=== PATIENT | female | born 2000 | race African-American/Black ===

== ENCOUNTER 2019-06-05 18:00 | Inpatient (IN) ==
[2019-06-05] MEDS ORDERED: CITRIC ACID/SODIUM CITRATE 15 ML UDC PO SCH (19:00)
[2019-06-05] MEDS ORDERED: MoRPHine SULFATE PF 1 MG/ML 10 ML AMP/VIAL ONE (19:02)
[2019-06-05] MEDS ORDERED: OXYTOCIN 10 UNITS/ML VIAL ONE (19:02)
[2019-06-05] MEDS ORDERED: PHENYLEPHRINE 100MCG/ML 5ML SYR ONE (19:02)
[2019-06-05] MEDS ORDERED: ONDANSETRON INJ 2 MG/ML 2 ML VIAL ONE (19:02)
[2019-06-05] MEDS ORDERED: fentaNYL citrate 100 MCG/2 ML VIAL ONE (19:02)
--- NOTE | 2019-06-05 19:02 | Anesthesiology Consultation ---
Date of Service June 05, 2019 Assessment & Plan (1) Encounter for pre-operative examination: Chart Review Chart Review: Acceptable Risk for Surgery and Patient NOT seen in Pre Admission Testing Spoke to patient at length via medical interpretation service. She denied any past medical history, particularly no heart disease, lung disease, diabetes or kidney disease. Consults Requested none History Surgery repeat c section Height/Weight Height: 4 ft 11 in Weight: 71.214 kg Allergies Allergy/AdvReac Type Severity Reaction Status Date / Time No Known Allergies Allergy Unverified 06/05/19 19:00 Medications Home Medications Medication Instructions Recorded Confirmed Last Taken vit-iron fum-folic ac 1 tab PO DAILY 06/05/19 06/05/19 Unknown [ Vitamin] Past Medical History Medical History No known health problems Exercise / Class Metabolic Activity II 4-5 Yardwork/Stairs/Walk up hill Past Surgical History Surgical History Previous section Past Anesthesia History No Hx of Anesthesia Complications and No Family Hx of Anesthesia Complications History of PONV No Hx of PONV and No Hx of Motion Sickness Social History Smoking Status: Former smoker Hx Alcohol Use: No Hx Substance Use: No substance use type: does not use Physical Exam Vital Signs Last Vital Signs Temp 37 C 06/05/19 18:21 Pulse 88 06/05/19 18:21 Resp 16 06/05/19 18:21 BP 158/95 H 06/05/19 18:21
[2019-06-05] MEDS ORDERED: LACTATED RINGER'S 1,000 ML IV SCH ×3 (19:15→21:30)
[2019-06-05] MEDS ORDERED: cefOXitin 2,000 MG in DEXTROSE 5% 50 ML IV ONE (19:15)
[2019-06-05 19:30] LABS: Basophils # (auto) 0.03 K/uL (0-0.2); Basophils % (auto) 0.3 %; Eosinophils # (auto) 0.04 K/uL (0-0.5); Eosinophils % (auto) 0.4 %; Hemoglobin 8.1 g/dL (12.0-16.0); Immature Granulocytes # (auto) 0.06 K/uL (0.00-0.02); Immature Granulocytes % (auto) 0.6 %; Lymphocytes # (auto) 1.98 K/uL (1.2-3.4); Lymphocytes % (auto) 19.6 %; Mean Corpuscular Hemoglobin 19.8 pg (25-34); Mean Corpuscular Volume 65.9 fL (80-100); Monocytes # (auto) 0.74 K/uL (0.11-0.59); Monocytes % (auto) 7.3 %; Neutrophils # (auto) 7.27 K/uL (1.4-6.5); Neutrophils % (auto) 71.8 %; Nucleated RBC # (auto) 0.08 K/uL (0-0); Nucleated RBC % (auto) 0.8 %; Platelet Count 205 K/uL (130-400); RDW Coefficient of Variation 20.4 % (11.5-14.5); White Blood Count 10.12 K/uL (4.8-10.8)
[2019-06-05 19:54] LABS: Anisocytosis Present; Microcytosis Present
[2019-06-05] MEDS ORDERED: ONDANSETRON INJ 2 MG/ML 2 ML VIAL IV PRN (20:18)
[2019-06-05] MEDS ORDERED: MoRPHine SULFATE PF 1 MG/ML 10 ML AMP/VIAL INT SPINAL ONE (20:18)
[2019-06-05] MEDS ORDERED: MoRPHine SULFATE 2 MG/ML CARP IV PRN (20:18)
[2019-06-05] MEDS ORDERED: NALBUPHINE HCL INJ 10 MG/ML AMP IV PRN (20:18)
[2019-06-05] MEDS ORDERED: NALOXONE HCL 0.08 MG in SYRINGE 1.8 ML IV PRN (20:18)
[2019-06-05] MEDS ORDERED: ePHEDrine sulfate 50 MG/ML AMP IV PRN (20:18)
[2019-06-05] MEDS ORDERED: NALOXONE HCL 0.4 MG/1 ML VIAL/CARP IV PRN (20:18)
[2019-06-05] MEDS ORDERED: LACTATED RINGER'S 500 ML IV PRN (20:18)
[2019-06-05] MEDS ORDERED: NALOXONE HCL 1 MG in SODIUM CHLORIDE 0.9% 1000ML 1,000 ML IV PRN (20:18)
[2019-06-05] MEDS ORDERED: DiphenhydrAMINE HCL 50 MG/ML VIAL IV PRN (20:18)
[2019-06-05] MEDS ORDERED: DC INTRASPINAL MORPHINE SCH (20:30)
[2019-06-05] MEDS ORDERED: SODIUM CHLORIDE 0.9% 1000ML 1,000 ML IV SCH (20:30)
[2019-06-05] MEDS ORDERED: NO NARCOTICS OR SEDATIVES SCH (20:30)
[2019-06-05] MEDS ORDERED: MAGNESIUM HYDROXIDE SUSP 30 ML UDC PO PRN (21:16)
[2019-06-05] MEDS ORDERED: HYDROCORTISONE ACETATE 25 MG SUPP PR PRN (21:16)
[2019-06-05] MEDS ORDERED: SENNA 8.6 MG TAB PO PRN (21:16)
[2019-06-05] MEDS ORDERED: SUPERCREAM 0.870% 15 GM JAR EXT PRN (21:16)
[2019-06-05] MEDS ORDERED: DIPHTHERIA/TETANUS/PERTUSSIS 0.5 ML SYR/VIAL IM ONE (21:16)
[2019-06-05] MEDS ORDERED: BENZOCAINE 20% AER SPR 82.5 GM CAN EXT PRN (21:16)
--- NOTE | 2019-06-05 21:24 | Post Operative Brief Note ---
Immediate Post Op Note v1 Date of Surgery June 05, 2019 Pre & Post Diagnosis Operation Date: 06/05/19 19:00 Pre-Op Diagnosis: Repeat elevated blood pressure proteinuria Post-Op Diagnosis: Same Procedure Operation Date: 06/05/19 19:00 Actual Procedures p Section in LD(Bilateral) - Benigno Watson MD Surgeon Benigno Watson MD Doctor Naturopathic jomar Estimated Blood Loss 350 Findings Consistent with Post-Op Diagnosis Fluids 1200 ml Specimens placenta Drains Case Catheter (catheter placed in OR, draining clear yellow urine to be monitored throughtout procedure by Anesthesia ) Anesthesia Type Spinal Complications none Disposition Accompanied Patient To Recovery: No Disposition: Recovery Room
--- NOTE | 2019-06-05 21:30 | Anesthesiology Progress Note ---
Date of Service June 05, 2019 Anesthesia Post Procedure Vital Signs Vital Signs: Temp Pulse Resp BP Pulse Ox 06/05/19 21:25 100 H 164/91 H 75 L 06/05/19 19:06 37 C 88 16 158/95 H 06/05/19 18:21 37 C 88 16 158/95 H 06/05/19 18:08 88 158/95 H 06/05/19 18:07 37.4 C 16 Transfer of Care Handoff Completed per policy Notes Mental Status: alert / awake / arousable and participated in evaluation Patient Amnestic to Procedure: No Nausea / Vomiting: adequately controlled Pain: adequately controlled Airway Patency, RR, SpO2: stable & adequate BP & HR: stable & adequate Hydration State: stable & adequate Neuraxial Anesthesia: was administered and sensory block is resolving Anesthetic Complications: no major complications apparent and Pt Satisfied with anesthetic care
[2019-06-05] MEDS: KETOROLAC 30 MG/ML VIAL IV PRN (21:32)
--- NOTE | 2019-06-05 21:46 | Operative Report ---
DATE OF OPERATION: 06/05/2019 PROCEDURE: Repeat low segment section. INDICATIONS FOR SURGERY: Intrauterine at term at 38+ weeks gestation, proteinuria, persistent elevated blood pressure. PREOPERATIVE DIAGNOSES: Elevated blood pressure, proteinuria. POSTOPERATIVE DIAGNOSES: Elevated blood pressure, proteinuria. Delivered live male infant. SURGEON: John Watson M.D. DIGITAL MEDIA MANAGER: Oni Crawford M.D. ESTIMATED BLOOD LOSS: 350 mL. ANESTHESIA: Spinal. OPERATIVE FINDINGS AND PROCEDURE: The patient was brought to the OR table, correctly identified by armband conversation. Spinal anesthesia was administered. Compression stockings were applied. Case catheter was inserted aseptically in the bladder, connected to gravity drainage. Lower abdomen was painted with an alcohol based sterilizing solution, draped in the usual sterile fashion. Level of the anesthesia was tested and found to be adequate. Pfannenstiel incision was made through a previous scar, was carried down to the anterior fascia by sharp dissection. Hemostasis was secured by electrocauterization. Fascia was incised transversely, from underlying muscle by blunt and sharp dissection. Recti muscles were in the midline exposing peritoneum, which was carefully raised and entered. Then, an incision was made above the vesicouterine fold. The bladder was undermined bluntly and pushed out of the operative field. The lower uterine segment was scored gently with a knife, then entered with scissors. Clear amniotic fluid was seen at this time. A Vectis retractor was inserted into the uterine cavity and then the was delivered with fundal pressure. Infant breathed and cried spontaneously and was attended to by the mat inspector who was scrubbed and present at the time of delivery. Cord blood was taken. The placenta was removed manually. Uterus, tubes and ovaries were brought out through the incision. Uterine cavity was wiped clean with a clean sponge. Ten units of Pitocin was injected into the myometrium. Myometrium was approximated with a continuous interlocking suture of heavy duty chromic. Then, a second layer was approximated over this with a Vicryl. Then, about 2 [id number] sutures of interrupted Vicryl were used to complete the approximation and complete hemostasis. Following this, the peritoneal edges were approximated with continuous 3-0 chromic, restored the integrity of the vesicouterine fold. Everything was inspected. The pelvis was cleansed of all blood clots and debris. Hemostasis was excellent. Uterus, tubes and ovaries were reinserted into the abdomen. Peritoneum was closed with a mattress suture of chromic catgut. Recti muscles were approximated with interrupted [id number] suture of chromic catgut. The fascia was closed with continuous interlocking suture of Vicryl on each side, tied in the midline. SubQ was approximated with a running plain. Skin edges were approximated with staple clips. The patient tolerated the procedure well and left the OR in good condition. I attest to the content of the Intraoperative Record and any orders documented therein. Any exception s are noted below.
[2019-06-05] MEDS: MEPERIDINE HCL 25 MG/ML CARP IV PRN ×2 (22:01→22:49)
[2019-06-05] MEDS ORDERED: OXYTOCIN 10 UNITS/ML VIAL IM ONE (22:36)
[2019-06-05] MEDS ORDERED: LABETALOL HCL 100 MG TAB PO ONE (23:45)
[2019-06-06] MEDS: MEPERIDINE HCL 25 MG/ML CARP IV PRN (00:09)
[2019-06-06] MEDS ORDERED: MAGNESIUM SULFATE / WTR 40 GM/1,000 ML BAG IV SCH (02:00)
[2019-06-06] MEDS: OXYTOCIN 20 UNITS in LACTATED RINGER'S 1,000 ML IV SCH (05:37)
[2019-06-06 06:51] LABS: Basophils # (auto) 0.03 K/uL (0-0.2); Basophils % (auto) 0.3 %; Eosinophils # (auto) 0.05 K/uL (0-0.5); Eosinophils % (auto) 0.4 %; Hematocrit (blood only) 24.9 % (37-47); Hemoglobin 7.4 g/dL (12.0-16.0); Immature Granulocytes # (auto) 0.05 K/uL (0.00-0.02); Immature Granulocytes % (auto) 0.4 %; Lymphocytes # (auto) 2.21 K/uL (1.2-3.4); Lymphocytes % (auto) 18.6 %; Mean Corpuscular Hemoglobin 19.6 pg (25-34); Mean Corpuscular Hgb Conc 29.7 g/dL (32-36); Monocytes # (auto) 1.01 K/uL (0.11-0.59); Monocytes % (auto) 8.5 %; Neutrophils # (auto) 8.56 K/uL (1.4-6.5); Neutrophils % (auto) 71.8 %; Nucleated RBC # (auto) 0.04 K/uL (0-0); Nucleated RBC % (auto) 0.3 %; Platelet Count 200 K/uL (130-400); RDW Coefficient of Variation 20.3 % (11.5-14.5); RDW Standard Deviation 48.3 fL (36.4-46.3); Red Blood Count 3.77 M/uL (4.2-5.4); White Blood Count 11.91 K/uL (4.8-10.8)
[2019-06-06 07:06] LABS: INR 0.9 (0.9-1.1); Partial Thromboplastin Ratio 1.1; Prothrombin Time 9.3 Seconds (9.0-12.0)
[2019-06-06 07:09] LABS: BUN Creatinine Ratio 14.7 (10-20); Calcium 7.3 mg/dl (8.5-10.1); Creatinine Clr Calc Pharmacy 117.6 ml/min; Est GFR (African American) 147.1; Est GFR (Non-African American) 126.9; Potassium 3.7 mmol/L (3.5-5.1)
[2019-06-06 07:17] LABS: Anisocytosis Present; Spherocytes 1+
[2019-06-06] MEDS: KETOROLAC 30 MG/ML VIAL IV PRN (07:33)
--- NOTE | 2019-06-06 08:32 | Anesthesiology Progress Note ---
Date of Service June 06, 2019 Anesthesia Post Procedure Vital Signs Vital Signs: Temp Pulse Resp BP Pulse Ox 06/06/19 08:26 85 90 06/06/19 08:21 85 90 06/06/19 08:16 83 89 L 06/06/19 08:15 78 128/83 06/06/19 08:11 90 92 06/06/19 08:06 89 91 06/06/19 08:01 91 H 89 L 06/06/19 07:56 92 H 93 06/06/19 07:51 91 H 89 L 06/06/19 07:46 90 87 L 06/06/19 07:41 97 H 85 L 06/06/19 07:36 89 88 L 06/06/19 07:31 87 85 L 06/06/19 07:26 87 16 86 L 06/06/19 07:22 88 93 06/06/19 07:21 83 91 06/06/19 07:16 90 94 06/06/19 07:15 90 135/87 06/06/19 07:14 83 93 06/06/19 07:11 84 88 L 06/06/19 07:06 88 93 06/06/19 07:01 84 90 06/06/19 07:00 36.7 C 16 06/06/19 06:56 85 89 L 06/06/19 06:53 84 94 06/06/19 06:51 84 90 06/06/19 06:48 84 92 06/06/19 06:46 85 90 06/06/19 06:41 90 93 06/06/19 06:40 91 H 93 06/06/19 06:36 85 90 06/06/19 06:31 90 16 87 L 06/06/19 06:30 84 16 94 06/06/19 06:26 88 88 L 06/06/19 06:21 84 88 L 06/06/19 06:18 92 H 93 06/06/19 06:16 91 H 89 L 06/06/19 06:15 86 135/83 06/06/19 06:11 95 H 92 06/06/19 06:06 88 94 06/06/19 06:01 86 92 06/06/19 05:57 90 94 06/06/19 05:56 85 92 06/06/19 05:51 89 95 06/06/19 05:48 86 93 06/06/19 05:46 85 92 06/06/19 05:41 85 92 06/06/19 05:37 82 94 06/06/19 05:36 85 94 06/06/19 05:31 81 92 06/06/19 05:27 92 H 94 06/06/19 05:26 87 93 06/06/19 05:22 98 H 93 06/06/19 05:21 98 H 92 06/06/19 05:17 85 93 06/06/19 05:16 84 95 06/06/19 05:15 80 18 140/82 06/06/19 05:12 83 94 06/06/19 05:11 82 96 06/06/19 05:06 87 89 L 06/06/19 05:03 86 93 06/06/19 05:01 96 H 96 06/06/19 04:58 79 94 06/06/19 04:56 81 94 06/06/19 04:51 88 93 06/06/19 04:46 86 94 06/06/19 04:41 83 92 06/06/19 04:37 82 94 06/06/19 04:36 81 93 06/06/19 04:31 89 92 06/06/19 04:26 91 H 93 06/06/19 04:25 86 93 06/06/19 04:21 86 91 06/06/19 04:18 82 93 06/06/19 04:16 86 92 06/06/19 04:15 102 H 115/72 06/06/19 04:11 87 93 06/06/19 04:10 89 18 95 06/06/19 04:05 85 91 06/06/19 04:00 92 H 96 06/06/19 03:59 94 H 94 06/06/19 03:55 89 91 06/06/19 03:50 89 91 06/06/19 03:45 86 90 06/06/19 03:43 88 93 06/06/19 03:40 93 H 94 06/06/19 03:36 88 93 06/06/19 03:35 95 H 96 06/06/19 03:30 84 95 06/06/19 03:28 87 93 06/06/19 03:25 81 93 06/06/19 03:22 85 94 06/06/19 03:20 84 92 06/06/19 03:16 81 94 06/06/19 03:15 86 93 06/06/19 03:14 76 140/82 06/06/19 03:11 88 93 06/06/19 03:10 86 95 06/06/19 03:06 98 H 94 06/06/19 03:05 101 H 93 06/06/19 03:04 88 129/85 06/06/19 03:00 92 H 93 06/06/19 02:55 98 H 93 06/06/19 02:54 83 141/89 H 06/06/19 02:50 87 18 97 06/06/19 02:46 85 93 06/06/19 02:45 81 95 06/06/19 02:44 75 141/89 H 06/06/19 02:40 83 95 06/06/19 02:35 75 18 96 06/06/19 02:34 84 137/88 94 06/06/19 02:30 89 96 06/06/19 02:26 102 H 93 06/06/19 02:25 87 96 06/06/19 02:24 86 132/84 06/06/19 02:20 95 H 16 96 06/06/19 02:15 85 95 06/06/19 02:14 83 142/94 H 06/06/19 02:10 91 H 95 06/06/19 02:05 79 97 06/06/19 02:04 82 157/101 H 06/06/19 02:00 82 99 06/06/19 01:55 78 97 06/06/19 01:54 76 157/99 H 06/06/19 01:50 74 99 06/06/19 01:45 77 98 06/06/19 01:44 73 148/93 H 06/06/19 01:40 78 98 06/06/19 01:35 90 100 06/06/19 01:34 93 H 144/94 H 06/06/19 01:30 76 97 06/06/19 01:25 79 98 06/06/19 01:24 78 153/100 H 06/06/19 01:20 74 100 06/06/19 01:15 81 99 06/06/19 01:14 81 154/101 H 06/06/19 01:10 81 98 06/06/19 01:05 83 100 06/06/19 01:04 76 144/96 H 06/06/19 01:00 75 99 06/06/19 00:55 76 97 06/06/19 00:54 70 150/99 H 06/06/19 00:50 78 96 06/06/19 00:45 96 H 97 06/06/19 00:44 82 153/101 H 06/06/19 00:40 83 99 06/06/19 00:35 74 96 06/06/19 00:34 75 150/97 H 06/06/19 00:30 79 96 06/06/19 00:25 76 99 06/06/19 00:24 86 147/94 H 06/06/19 00:20 81 95 06/06/19 00:15 78 95 06/06/19 00:14 76 153/96 H 06/06/19 00:10 84 99 06/06/19 00:05 72 99 06/06/19 00:04 70 159/106 H 06/06/19 00:00 85 98 06/05/19 23:55 72 98 06/05/19 23:54 75 20 156/104 H 98 06/05/19 23:50 82 100 06/05/19 23:45 75 100 06/05/19 23:44 71 152/98 H 06/05/19 23:40 79 100 06/05/19 23:35 76 100 06/05/19 23:34 73 158/100 H 06/05/19 23:30 76 98 06/05/19 23:27 77 154/101 H 06/05/19 23:25 78 100 06/05/19 23:24 36.7 C 78 18 149/101 H 100 06/05/19 23:20 73 98 06/05/19 23:15 73 98 06/05/19 23:14 72 143/97 H 06/05/19 23:10 73 99 06/05/19 23:05 77 100 06/05/19 23:04 78 153/106 H 06/05/19 23:00 80 99 06/05/19 22:55 78 100 06/05/19 22:54 75 20 156/103 H 75 L 06/05/19 22:50 77 100 06/05/19 22:45 70 100 06/05/19 22:44 73 158/96 H 06/05/19 22:40 70 100 06/05/19 22:35 70 100 06/05/19 22:34 70 150/95 H 06/05/19 22:30 75 99 06/05/19 22:25 87 97 06/05/19 22:24 36.7 C 73 18 141/85 H 97 06/05/19 22:20 78 98 06/05/19 22:15 83 100 06/05/19 22:14 74 18 154/91 H 100 06/05/19 22:10 78 100 06/05/19 22:05 84 99 06/05/19 22:04 76 20 158/88 H 99 06/05/19 22:00 79 99 06/05/19 21:55 73 100 06/05/19 21:54 71 20 143/93 H 100 06/05/19 21:50 74 98 06/05/19 21:45 74 98 06/05/19 21:44 71 20 133/86 98 06/05/19 21:40 78 98 06/05/19 21:35 82 98 06/05/19 21:34 71 18 141/86 H 98 06/05/19 21:30 78 98 06/05/19 21:25 100 H 164/91 H 75 L 06/05/19 21:24 36.8 C 114 H 18 164/91 H 94 06/05/19 19:06 37 C 88 16 158/95 H 06/05/19 18:21 37 C 88 16 158/95 H 06/05/19 18:08 88 158/95 H 06/05/19 18:07 37.4 C 16 Pain Intensity Bilateral Lower Abdomen: Pain Intensity: 3 Notes Mental Status: alert / awake / arousable and participated in evaluation Patient Amnestic to Procedure: Yes Nausea / Vomiting: adequately controlled Pain: adequately controlled Airway Patency, RR, SpO2: stable & adequate BP & HR: stable & adequate Hydration State: stable & adequate Neuraxial Anesthesia: was administered and sensory block resolved Anesthetic Complications: no major complications apparent and Pt Satisfied with anesthetic care
[2019-06-06] MEDS: SIMETHICONE 80 MG CHEW PO SCH ×4 (09:35→20:16)
[2019-06-06] MEDS: FERROUS SULFATE 325 MG TAB PO SCH (09:35)
[2019-06-06] MEDS: PRENATAL VITAMIN 1 TAB PO SCH (09:35)
[2019-06-06] MEDS: DOCUSATE SODIUM 100 MG CAP PO SCH ×2 (09:35→20:16)
--- NOTE | 2019-06-06 11:29 | Obstetrical Progress Note ---
Date of Service June 06, 2019 Physical Exam Physical Exam: abdomen soft and nontender bowel sounds hypoactive no calf tenderness vaginal bleeding scant hgb 7.4 2 + ankle edema Results & Data Vital Signs (Past 12 Hours) Vital Signs Temp Pulse Resp BP Pulse Ox 06/06/19 11:21 82 91 06/06/19 11:16 86 93 06/06/19 11:15 85 119/72 06/06/19 11:11 91 H 92 06/06/19 11:06 86 90 06/06/19 11:01 85 94 06/06/19 10:56 82 92 06/06/19 10:51 80 92 06/06/19 10:46 81 91 06/06/19 10:41 83 90 06/06/19 10:36 83 92 06/06/19 10:31 87 92 06/06/19 10:26 85 93 06/06/19 10:21 92 H 97 06/06/19 10:16 82 93 06/06/19 10:15 82 16 121/74 06/06/19 10:11 83 94 06/06/19 10:06 79 92 06/06/19 10:03 85 89 L 06/06/19 10:01 82 91 06/06/19 10:00 16 93 06/06/19 09:56 81 91 06/06/19 09:51 86 91 06/06/19 09:47 85 89 L 06/06/19 09:46 84 90 06/06/19 09:42 83 89 L 06/06/19 09:41 83 92 06/06/19 09:36 91 H 93 06/06/19 09:31 88 92 06/06/19 09:26 86 90 06/06/19 09:21 83 91 06/06/19 09:19 86 89 L 06/06/19 09:16 86 92 06/06/19 09:15 83 16 122/78 06/06/19 09:11 87 92 06/06/19 09:06 84 92 06/06/19 09:01 91 H 92 06/06/19 09:00 16 97 06/06/19 08:56 89 92 06/06/19 08:54 99 H 94 06/06/19 08:51 83 92 06/06/19 08:46 82 92 06/06/19 08:41 83 90 06/06/19 08:36 84 90 06/06/19 08:32 94 H 93 06/06/19 08:31 87 92 06/06/19 08:26 85 90 06/06/19 08:21 85 90 06/06/19 08:16 83 89 L 06/06/19 08:15 78 128/83 06/06/19 08:11 90 92 06/06/19 08:06 89 91 06/06/19 08:01 91 H 89 L 06/06/19 08:00 16 95 06/06/19 07:56 92 H 93 06/06/19 07:51 91 H 89 L 06/06/19 07:46 90 87 L 06/06/19 07:41 97 H 85 L 06/06/19 07:36 89 88 L 06/06/19 07:31 87 85 L 06/06/19 07:26 87 16 86 L 06/06/19 07:22 88 93 06/06/19 07:21 83 91 06/06/19 07:16 90 94 06/06/19 07:15 90 135/87 06/06/19 07:14 83 93 06/06/19 07:11 84 88 L 06/06/19 07:06 88 93 06/06/19 07:01 84 90 06/06/19 07:00 36.7 C 16 93 06/06/19 06:56 85 89 L 06/06/19 06:53 84 94 06/06/19 06:51 84 90 06/06/19 06:48 84 92 06/06/19 06:46 85 90 06/06/19 06:41 90 93 06/06/19 06:40 91 H 93 06/06/19 06:36 85 90 06/06/19 06:31 90 16 87 L 06/06/19 06:30 84 16 94 06/06/19 06:26 88 88 L 06/06/19 06:21 84 88 L 06/06/19 06:18 92 H 93 06/06/19 06:16 91 H 89 L 06/06/19 06:15 86 135/83 06/06/19 06:11 95 H 92 06/06/19 06:06 88 94 06/06/19 06:01 86 92 06/06/19 05:57 90 94 06/06/19 05:56 85 92 06/06/19 05:51 89 95 06/06/19 05:48 86 93 06/06/19 05:46 85 92 06/06/19 05:41 85 92 06/06/19 05:37 82 94 06/06/19 05:36 85 94 06/06/19 05:31 81 92 06/06/19 05:27 92 H 94 06/06/19 05:26 87 93 06/06/19 05:22 98 H 93 06/06/19 05:21 98 H 92 06/06/19 05:17 85 93 06/06/19 05:16 84 95 06/06/19 05:15 80 18 140/82 06/06/19 05:12 83 94 06/06/19 05:11 82 96 06/06/19 05:06 87 89 L 06/06/19 05:03 86 93 06/06/19 05:01 96 H 96 06/06/19 04:58 79 94 06/06/19 04:56 81 94 06/06/19 04:51 88 93 06/06/19 04:46 86 94 06/06/19 04:41 83 92 06/06/19 04:37 82 94 06/06/19 04:36 81 93 06/06/19 04:31 89 92 06/06/19 04:26 91 H 93 06/06/19 04:25 86 93 06/06/19 04:21 86 91 06/06/19 04:18 82 93 06/06/19 04:16 86 92 06/06/19 04:15 102 H 115/72 06/06/19 04:11 87 93 06/06/19 04:10 89 18 95 06/06/19 04:05 85 91 06/06/19 04:00 92 H 96 06/06/19 03:59 94 H 94 06/06/19 03:55 89 91 06/06/19 03:50 89 91 06/06/19 03:45 86 90 06/06/19 03:43 88 93 06/06/19 03:40 93 H 94 06/06/19 03:36 88 93 06/06/19 03:35 95 H 96 06/06/19 03:30 84 95 06/06/19 03:28 87 93 06/06/19 03:25 81 93 06/06/19 03:22 85 94 06/06/19 03:20 84 92 06/06/19 03:16 81 94 06/06/19 03:15 86 93 06/06/19 03:14 76 140/82 06/06/19 03:11 88 93 06/06/19 03:10 86 95 06/06/19 03:06 98 H 94 06/06/19 03:05 101 H 93 06/06/19 03:04 88 129/85 06/06/19 03:00 92 H 93 06/06/19 02:55 98 H 93 06/06/19 02:54 83 141/89 H 06/06/19 02:50 87 18 97 06/06/19 02:46 85 93 06/06/19 02:45 81 95 06/06/19 02:44 75 141/89 H 06/06/19 02:40 83 95 06/06/19 02:35 75 18 96 06/06/19 02:34 84 137/88 94 06/06/19 02:30 89 96 06/06/19 02:26 102 H 93 06/06/19 02:25 87 96 06/06/19 02:24 86 132/84 06/06/19 02:20 95 H 16 96 06/06/19 02:15 85 95 06/06/19 02:14 83 142/94 H 06/06/19 02:10 91 H 95 06/06/19 02:05 79 97 06/06/19 02:04 82 157/101 H 06/06/19 02:00 82 99 06/06/19 01:55 78 97 06/06/19 01:54 76 157/99 H 06/06/19 01:50 74 99 06/06/19 01:45 77 98 06/06/19 01:44 73 148/93 H 06/06/19 01:40 78 98 06/06/19 01:35 90 100 06/06/19 01:34 93 H 144/94 H 06/06/19 01:30 76 97 06/06/19 01:25 79 98 06/06/19 01:24 78 153/100 H 06/06/19 01:20 74 100 06/06/19 01:15 81 99 06/06/19 01:14 81 154/101 H 06/06/19 01:10 81 98 06/06/19 01:05 83 100 06/06/19 01:04 76 144/96 H 06/06/19 01:00 75 99 06/06/19 00:55 76 97 06/06/19 00:54 70 150/99 H 06/06/19 00:50 78 96 06/06/19 00:45 96 H 97 06/06/19 00:44 82 153/101 H 06/06/19 00:40 83 99 06/06/19 00:35 74 96 06/06/19 00:34 75 150/97 H 06/06/19 00:30 79 96 06/06/19 00:25 76 99 06/06/19 00:24 86 147/94 H 06/06/19 00:20 81 95 06/06/19 00:15 78 95 06/06/19 00:14 76 153/96 H 06/06/19 00:10 84 99 06/06/19 00:05 72 99 06/06/19 00:04 70 159/106 H 06/06/19 00:00 85 98 06/05/19 23:55 72 98 06/05/19 23:54 75 20 156/104 H 98 06/05/19 23:50 82 100 06/05/19 23:45 75 100 06/05/19 23:44 71 152/98 H 06/05/19 23:40 79 100 06/05/19 23:35 76 100 06/05/19 23:34 73 158/100 H 06/05/19 23:30 76 98 06/05/19 23:27 77 154/101 H
[2019-06-06] MEDS: LABETALOL HCL 100 MG TAB PO SCH ×3 (12:33→21:00)
[2019-06-06] MEDS ORDERED: ZOLPIDEM TARTRATE 5 MG TAB PO PRN (14:18)
[2019-06-06] MEDS ORDERED: DiphenhydrAMINE HCL 50 MG/ML VIAL IV PRN (14:18)
[2019-06-06] MEDS ORDERED: ONDANSETRON INJ 2 MG/ML 2 ML VIAL IV PRN (14:18)
[2019-06-06] MEDS ORDERED: PROMETHAZINE HCL 25 MG in SODIUM CHLORIDE 0.9% 50 ML IV PRN (14:18)
[2019-06-06] MEDS ORDERED: MEPERIDINE HCL 50 MG/ML CARP IV PRN (14:18)
[2019-06-06] MEDS ORDERED: KETOROLAC 30 MG/ML VIAL IV PRN (14:18)
[2019-06-06] MEDS: IBUPROFEN 600 MG TAB PO PRN (15:04)
[2019-06-06] MEDS: OXYCODONE/ACETAMINOPHEN 5mg/325mg TAB PO PRN (16:24)
[2019-06-06] MEDS ORDERED: BISACODYL 5 MG TABEC PO SCH (20:00)
[2019-06-07] MEDS: IBUPROFEN 600 MG TAB PO PRN ×4 (01:25→17:21)
[2019-06-07] MEDS: OXYCODONE/ACETAMINOPHEN 5mg/325mg TAB PO PRN ×4 (01:28→17:21)
[2019-06-07] MEDS: OXYTOCIN 20 UNITS in LACTATED RINGER'S 1,000 ML IV SCH (07:14)
[2019-06-07] MEDS: PRENATAL VITAMIN 1 TAB PO SCH (07:38)
[2019-06-07] MEDS: FERROUS SULFATE 325 MG TAB PO SCH (07:38)
[2019-06-07] MEDS: DOCUSATE SODIUM 100 MG CAP PO SCH (07:38)
[2019-06-07] MEDS: SIMETHICONE 80 MG CHEW PO SCH ×3 (07:39→17:21)
[2019-06-07 08:07] LABS: Hematocrit (blood only) 24.5 % (37-47); Hemoglobin 7.4 g/dL (12.0-16.0)
[2019-06-07] MEDS: LABETALOL HCL 100 MG TAB PO SCH ×2 (08:47→14:20)
--- NOTE | 2019-06-07 15:49 | Obstetrical Progress Note ---
Date of Service June 07, 2019 Physical Exam Physical Exam: abdomen soft and non tender incision is clean and dry no calf tenderness vaginal bleeding scant to moderate hgb 7.4 ambulating well pain is well controlled Results & Data Vital Signs (Past 12 Hours) Vital Signs Temp Pulse Resp BP Pulse Ox 06/07/19 13:19 88 20 133/85 96 06/07/19 11:00 36.5 C 85 20 145/96 H 06/07/19 08:40 142/91 H 93 06/07/19 07:41 142/95 H 93 06/07/19 07:40 36.7 C 84 16 158/100 H 06/07/19 04:45 36.8 C 82 18 148/91 H
[2019-06-07] MEDS ORDERED: BISACODYL 10 MG SUPP PR PRN (21:16)
--- NOTE | 2019-06-07 23:39 | Discharge Summary ---
HOSPITAL COURSE: I followed Mrs. Cortes for care and delivery. She had an early ultrasound, had a confirmed due date. was uneventful until about a week prior to admission where she began to develop elevated blood pressure. The numbers were at least a 20 mm increase in both systolic and diastolic, and she started to develop proteinuria. She was treated with decreased activity and bed rest; however, the symptoms worsened, and at 38 weeks and 4 days, she was admitted from the office for an urgent section. She underwent low segment section. Preop hemoglobin was 8.1, hematocrit 27.0. At discharge, hemoglobin was 7.4, hematocrit 24.5. Surgery went without difficulty. Estimated blood loss 350 mL. Postop period, we had difficulty controlling her blood pressure, put her on mag sulfate 2 grams an hour. We did not give her a loading dose along with a supplemental labetalol. Pressures were well controlled. She did well postoperatively. She remained afebrile. She did have a dose of preoperative antibiotics. Her bowel sounds returned within 24 hours. At the time of discharge, she was ambulating well, eating well, pain was well controlled with a combination of Percocet and Motrin and she was also given a prescription for labetalol. POSTOPERATIVE INSTRUCTIONS: We emphasized that she continue to take her vitamins and supplemental iron due to her low hemoglobin and she was having problems with headaches. We informed the patient that the low hemoglobin is associated with a worsening headache pattern and she was also told to call the office for removal of janneth in about 5 days.
--- NOTE | 2019-06-16 07:57 | Coding Query ---
CODING QUERY To promote full compliance with coding requirements relating to patient care, provider participation is requested in all cases of farm advisor uncertainty. Please assist us with the question(s) below: Coding Question(s): Dr. Watson, Elevated blood pressure with proteinuria is documented in the patient's chart. Please clarify this diagnosis. Did the patient have: ( ) Pre-eclampsia ( ) mild ( x ) moderate ( ) severe ( ) severe with HELLP ( ) other, please specify ( ) Gestational hypertension ( ) Pre-existing hypertension ( ) Other, please explain Physician's Response(s): Thank you for your time, IBETH Garcia, [facility]
== END 2019-06-07 17:30 | disposition home or self-care (01) | DRG 788 ==
LOC: 4S1 18:00 → 4S2 06-06 17:08